=== PATIENT | male | born 1990 | race Caucasian/White ===

== ENCOUNTER 2017-04-03 08:10 | Emergency (ER) | payer SELFPAY ==
[~2017-04-03] VITALS: Ht 172.7 cm; Wt 84.8 kg
[~2017-04-03 08:10] MED LIST: ALBUTEROL0.09 MG/A2 INH; AMOXICILLIN500 MG PO; BENADRYL25 MG PO; CLARITIN10 MG PO; EPI EZ PEN1 MG/ML IM; KEFLEX500 MG PO; LISINOPRIL10 MG PO; MOTRIN800 MG PO; NKHM; PEPCID20 MG PO; PREDNISONE20 MG PO; ZITHROMAX Z PA250 MG PO
[2017-04-03] MEDS ORDERED: Motrin,Rufen800 MG PO (09:04)
[2017-04-03] MEDS ORDERED: KEFLEX500 M1 PO (09:04)
== END 2017-04-03 09:05 | disposition home or self-care (01) ==
LOC: ED 08:10
DX: K08.89 Other specified disorders of teeth and supporting structures (principal); H92.02 Otalgia, left ear

== ENCOUNTER 2017-07-10 15:39 | Emergency (ER) | payer OTHER ==
[~2017-07-10] VITALS: Ht 172.7 cm; Wt 83.9 kg
[~2017-07-10 15:39] MED LIST changes: +KEFLEX500 M1 PO; +Motrin,Rufen800 MG PO
[2017-07-10] MEDS ORDERED: AUGMENTIN 875875 MG PO (17:37)
[2017-07-10] MEDS ORDERED: FLONASE ALLERG9.9 ML NS (17:37)
== END 2017-07-10 18:00 | disposition home or self-care (01) ==
LOC: ED 15:39
DX: J32.9 Chronic sinusitis, unspecified (principal)

== ENCOUNTER 2017-11-26 10:46 | Emergency (ER) | payer OTHER ==
[~2017-11-26] VITALS: Ht 177.8 cm; Wt 81.6 kg
[~2017-11-26 10:46] MED LIST changes: +AUGMENTIN 875875 MG PO; +FLONASE ALLERG9.9 ML NS
[2017-11-26] MEDS ORDERED: PREDNISONE20 M1 PO (12:48)
[2017-11-26] MEDS ORDERED: ROBAXIN500 M1 PO (12:48)
== END 2017-11-26 13:23 | disposition home or self-care (01) ==
LOC: ED 10:46
DX: S33.5XXA Sprain of ligaments of lumbar spine, initial encounter (principal); M79.671 Pain in right foot; Z79.899 Other long term (current) drug therapy; X50.1XXA Overexertion from prolonged static or awkward postures, initial encounter; Y93.89 Activity, other specified; Y92.89 Other specified places as the place of occurrence of the external cause; Y99.9 Unspecified external cause status

== ENCOUNTER 2018-05-18 09:26 | Emergency (ER) | payer OTHER ==
[~2018-05-18] VITALS: Ht 172.7 cm; Wt 88.9 kg
--- NOTE | ~2018-05-18 | EKG ---
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
[~2018-05-18 09:26] MED LIST changes: +PREDNISONE20 M1 PO; +ROBAXIN500 M1 PO
[2018-05-18] MEDS ORDERED: SINGULAIR10 M1 PO (09:30)
[2018-05-18 09:54] LABS: BASO # 0.1 10*3/uL (0.0-0.1); BASO % 0.8 % (0.0-1.0); EOS # 0.5 10*3/uL (0.0-0.4); EOS % 6.5 % (1.0-4.0); HEMATOCRIT 45.3 % (42.0-52.0); HEMOGLOBIN 16.1 g/dl (14.0-18.0); LYMPH # 2.2 10*3/uL (1.3-4.4); LYMPH % 27.9 % (27.0-41.0); MEAN CELL VOLUME 86.3 fl (80.0-94.0); MEAN CORPUSCULAR HGB 30.7 pg (27.0-31.0); MEAN CORPUSCULAR HGB CONC 35.5 g/dl (33.0-37.0); MEAN PLATELET VOLUME 10.8 fl (9.6-12.3); MONO # 0.6 10*3/uL (0.1-1.0); MONO % 7.6 % (3.0-9.0); NEUT # 4.5 10*3/uL (2.3-7.9); NEUT % 56.9 % (47.0-73.0); PLATELET COUNT AUTOMATED 277 10*3/uL (130-400); RED BLOOD COUNT 5.25 10*6/uL (4.50-5.90); RED CELL DISTRI WIDTH 11.9 % (0-14.5); WHITE BLOOD COUNT 7.8 10*3/uL (4.8-10.8)
[2018-05-18 10:08] LABS: ACT PARTIAL THROMBO TIME 24.3 SECONDS (20.8-31.5)
[2018-05-18 10:09] LABS: ALBUMIN 4.2 gm/dl (3.1-4.5); ALKALINE PHOSPHATASE 110 U/L (45-117); BUN 5 mg/dl (7-24); CHLORIDE 106 mmol/L (98-107); CREATININE 1.12 mg/dL (0.70-1.30); LIPASE 145 U/L (73-393); POTASSIUM 3.7 mmol/L (3.5-5.1); SGOT/AST 31 IU/L (3-35); SGPT/ALT 78 U/L (12-78); SODIUM 140 mmol/L (136-145); TOTAL PROTEIN 7.6 gm/dL (6.4-8.2)
[2018-05-18 10:15] LABS: TROPONIN I < 0.015 ng/ml (<0.045)
[2018-05-18] MEDS ORDERED: ZITHROMAX250 MG PO (13:18)
[2018-05-18] MEDS ORDERED: PREDNISONE50 MG PO (13:18)
== END 2018-05-18 14:10 | disposition home or self-care (01) ==
LOC: ED 09:26
PROVIDERS: Emergency Medicine
DX: J20.9 Acute bronchitis, unspecified (principal); R42 Dizziness and giddiness; J45.909 Unspecified asthma, uncomplicated; R03.0 Elevated blood-pressure reading, without diagnosis of hypertension; Z91.09 Other allergy status, other than to drugs and biological substances; Z79.899 Other long term (current) drug therapy

== ENCOUNTER 2019-10-03 22:52 | Emergency (ER) | payer OTHER ==
[~2019-10-03] VITALS: Ht 172.7 cm; Wt 90.7 kg
--- NOTE | ~2019-10-03 | EKG ---
[place], [place] ELECTROCARDIOGRAM REPORT NAME: DIEUDONNE PIERSON UNIT #: [id number] ROOM: DOCTOR: EPIPHANY DRAFT REPORT BIRTHDATE: [birth year] [facility] Test Date: 2019-10-04 Test Time: 00:58:36 Pat Name: DIEUDONNE PIERSON Department: Room: Gender: Prospect Manager: Nannette Tello : 1990 Requested By: BOO LOU Order Number: [id number] Reading MD: Dajuan Lazo MD Measurements Intervals [place] Rate: 89 P: 10 MO: 143 QRS: -7 QRSD: 101 T: 19 QT: 338 QTc: 412 Interpretive Statements Sinus rhythm Compared to ECG 05/18/2018 09:50:16 ST (T wave) deviation no longer present Electronically Signed On 10-04-2019 4:32:26 PST by Dajuan Lazo MD CM:EKGRPT:ELECTROCARDIOGRAM REPORT [id number] BOO ESCALANTE DRAFT REPORT BOO LOU DO
[~2019-10-03 22:52] MED LIST changes: +PREDNISONE50 MG PO; +SINGULAIR10 M1 PO; +ZITHROMAX250 MG PO
[2019-10-04 00:56] LABS: BASO % 0.2 % (0.0-1.0); EOS # 0.2 10*3/uL (0.0-0.4); EOS % 1.3 % (1.0-4.0); HEMATOCRIT 45.9 % (42.0-52.0); HEMOGLOBIN 16.1 g/dl (14.0-18.0); LYMPH # 2.3 10*3/uL (1.3-4.4); LYMPH % 13.8 % (27.0-41.0); MEAN CELL VOLUME 86.8 fl (80.0-94.0); MEAN CORPUSCULAR HGB 30.4 pg (27.0-31.0); MEAN CORPUSCULAR HGB CONC 35.1 g/dl (33.0-37.0); MEAN PLATELET VOLUME 10.7 fl (9.6-12.3); NEUT # 12.9 10*3/uL (2.3-7.9); NEUT % 78.4 % (47.0-73.0); PLATELET COUNT AUTOMATED 285 10*3/uL (130-400); RED BLOOD COUNT 5.29 10*6/uL (4.50-5.90); RED CELL DISTRI WIDTH 11.9 % (0-14.5); WHITE BLOOD COUNT 16.4 10*3/uL (4.8-10.8)
[2019-10-04 01:14] LABS: ALBUMIN 3.7 gm/dl (3.1-4.5); ALKALINE PHOSPHATASE 127 U/L (45-117); BUN 9 mg/dl (7-24); CHLORIDE 108 mmol/L (98-107); CREATININE 1.04 mg/dL (0.70-1.30); POTASSIUM 3.7 mmol/L (3.5-5.1); SGOT/AST 25 IU/L (3-35); SGPT/ALT 70 U/L (12-78); SODIUM 139 mmol/L (136-145); TOTAL PROTEIN 7.3 gm/dL (6.4-8.2)
[2019-10-04 01:16] LABS: TROPONIN I < 0.015 ng/ml (<0.045)
[2019-10-04] MEDS ORDERED: ZITHROMAX250 MG PO (02:12)
[2019-10-04] MEDS ORDERED: TESSALON PERLE100 M1 PO (02:12)
== END 2019-10-04 02:30 | disposition home or self-care (01) ==
LOC: ED 22:52
PROVIDERS: Emergency Medicine
DX: J45.909 Unspecified asthma, uncomplicated (principal); E78.00 Pure hypercholesterolemia, unspecified; I10 Essential (primary) hypertension; Z79.899 Other long term (current) drug therapy

== ENCOUNTER 2019-11-07 04:14 | Inpatient (IN) | payer OTHER ==
[~2019-11-07] VITALS: Ht 173 cm; Wt 90.0 kg
[2019-11-07] VITALS (13 sets, daily range): BP systolic 122–168; BP diastolic 64–122
[~2019-11-07 04:14] MED LIST changes: +TESSALON PERLE100 M1 PO
--- NOTE | 2019-11-07 04:46 | NUR ---
PATIENT TOLERATING BREATHING TREATMENT WELL AT THIS TIME. RN WILL CONT TO MONITOR. VSS.
[2019-11-07 05:07] LABS: BASO % 0.3 % (0.0-1.0); EOS # 0.2 10*3/uL (0.0-0.4); EOS % 1.4 % (1.0-4.0); HEMATOCRIT 49.1 % (42.0-52.0); HEMOGLOBIN 17.4 g/dl (14.0-18.0); LYMPH # 0.3 10*3/uL (1.3-4.4); LYMPH % 3.1 % (27.0-41.0); MEAN CELL VOLUME 84.8 fl (80.0-94.0); MEAN CORPUSCULAR HGB 30.1 pg (27.0-31.0); MEAN CORPUSCULAR HGB CONC 35.4 g/dl (33.0-37.0); MEAN PLATELET VOLUME 11.4 fl (9.6-12.3); MONO # 0.6 10*3/uL (0.1-1.0); MONO % 5.4 % (3.0-9.0); NEUT # 9.9 10*3/uL (2.3-7.9); NEUT % 89.5 % (47.0-73.0); PLATELET COUNT AUTOMATED 252 10*3/uL (130-400); RED BLOOD COUNT 5.79 10*6/uL (4.50-5.90); RED CELL DISTRI WIDTH 11.9 % (0-14.5); WHITE BLOOD COUNT 11.1 10*3/uL (4.8-10.8)
[2019-11-07 05:22] LABS: ALBUMIN 4.3 gm/dl (3.1-4.5); ALKALINE PHOSPHATASE 112 U/L (45-117); BUN 11 mg/dl (7-24); CHLORIDE 109 mmol/L (98-107); CREATININE 1.29 mg/dL (0.70-1.30); POTASSIUM 3.9 mmol/L (3.5-5.1); SGOT/AST 32 IU/L (3-35); SGPT/ALT 90 U/L (12-78); SODIUM 141 mmol/L (136-145); TOTAL PROTEIN 7.8 gm/dL (6.4-8.2)
--- NOTE | 2019-11-07 05:24 | NUR ---
LAB CALLED WITH CRITICAL LACTIC ACID LEVEL 2.9.MD LOU NOTIFIED.
--- NOTE | 2019-11-07 05:27 | NUR ---
PATIENT RESTING IN BED AT THIS TIME, VOICES NO COMPLAINTS. VSS. CALL LIGHT WITH IN REACH. RN WILL CONT TO MONITOR
--- NOTE | 2019-11-07 07:45 | NUR ---
PATIENT LAYING IN BED APPEARS IN NO DISTRESS. ON CHECK TOTALER. VITAL SIGNS STABLE AT THIS TIME.
--- NOTE | 2019-11-07 08:03 | NUR ---
PATIENT STATES HE IS HUNGRY. BREAKFAST TRAY OREDERED FOR PATIENT. UNHOOKED FROM CABLES TO GO TO THE RESTROOM.
--- NOTE | 2019-11-07 09:36 | NUR ---
STILL AWAITING PATIENT ROOM ASSIGMENT.
--- NOTE | 2019-11-07 14:00 | NUR ---
A 29, admitted to , under the services of KECIA Foster DO with a diagnosis of ASTHMA EXACERBATION. Chief complaint is SOB, COUGH. Patient arrived via ambulatory from ER. Monitor applied. Initial assessment completed. Vital signs taken and recorded. KECIA FOSTER DO notified of admission to the unit. Orders received. See assessment for past medical history, medications and allergies. Patient and/or family oriented to unit. [facility] visitation policy reviewed. Clothing/patient valuable form completed. RITA ALVARADO
--- NOTE | 2019-11-07 14:06 | NUR ---
MED REC UPDATED WITH PT AT BEDSIDE.
[2019-11-07] MEDS ORDERED: CYCLOBENZAPRINE10 MG PO (14:18)
[2019-11-07] MEDS ORDERED: BENZONATATE100 M1 PO (14:20)
[2019-11-07] MEDS ORDERED: ADVAIR HFA 115-12 GM INH (14:21)
[2019-11-07] MEDS ORDERED: VITAMIN D-32000 UNI1 PO (14:21)
[2019-11-07] MEDS ORDERED: VENT7GM INH (14:22)
--- NOTE | 2019-11-07 14:25 | NUR ---
TOOK PATIENT TO 4TH FLOOR REPORT GIVEN TO RITA RN AT BEDSIDE. PATIENT AMBULATED WELL IN ER MULTIPLE TIMES TO RESTROOM WITHOUT ANY PROBLEMS. PATIENT AMBULATED INTO HIS ROOM TO BED ABOUT THE SAME DISTANCE. PATIENT BECAME SOB AND STATES HE HAS BEEN HAVING CHEST PAIN INTERMITTENTLY AND THAT "I SHOULD OF TOLD SOMEONE". PATIENT DIAPHORETIC. RITA RN NOTIFIED AND APPROPRIATE ACTION TAKEN. ASSESSED PATIENT PRIOR TO RETURNING TO ER AND RITA RN NOTIFIED.
--- NOTE | 2019-11-07 15:09 | NUR ---
WPOKE WITH REGARDING ORDERS FOR TAMIFLU WITH A NEGATIVE FLU TEST. PT CURRENTLY HAS A ROOMMATE. ASKED IF HE WANTED PT PLACED INTO ISOLATION FOR FLU PRECAUTIONS. SAID THAT IF THERE IS A ROOM AVAILABLE TO DO SO, IF NOT IT WAS OK. BELIEVES SXS ARE RELATED TO ASTHMA EXACERBATION AND NOT FLU RELATED.
--- NOTE | 2019-11-07 15:34 | NUR ---
VITALIY EDGE NOTIFIED THAT HR IS STILL 130s SINCE COMING TO FLOOR. SAID HE WOULD ORDER D-DIMER WITH NEXT TROP DRAW.
--- NOTE | 2019-11-07 16:08 | NUR ---
TYLENOL GIVENFOR TEMP OF 102.3. WILL MONITOR.
--- NOTE | 2019-11-07 19:23 | NUR ---
NOTIFIED OF + FLU A RESULT.
--- NOTE | 2019-11-07 19:35 | NUR ---
PATIENT MEDICATED SLOWLY WITH MORPHINE 2 MG IV PER PRN ORDER FOR C/O CHEST PAIN. STATED PAIN NOT NEW. RATED PAIN A 4/10 WITH 10 BEING THE WORST. SEE EMAR. REINFORCED USE OF CALL LIGHT.
--- NOTE | 2019-11-07 20:08 | NUR ---
DR. MCKEON UPDATED WITH HEART RATE AND VITAL SIGNS. ALSO NOTIFIED OF CHEST PAIN ,RATED 4/10 WITH 10 BEING THE WORST. STATED PAIN NOT NEW. NO NEW ORDERS RECEIVED.
--- NOTE | 2019-11-07 21:00 | NUR ---
PATIENT RESTING QUIETLY. NO FURTHER C/O VOICED
[2019-11-08] VITALS: BP 157/91
--- NOTE | 2019-11-08 01:28 | NUR ---
NORCO GIVEN PER PRN ORDER ORDER FOR C/O THROAT PAIN FROM COUGH. SEE EMAR. RATED PAIN A 6/10 WITH 10 BEING THE WORST. REINFORCED USE OF CALL LIGHT.
--- NOTE | 2019-11-08 01:28 | NUR ---
NIRCO GIVEN PER PRN ORDER FOR C/O THROAT PAIN FROM COUGHING. SEE EMAR. REINFORCED USE OF CALL LIGHT
--- NOTE | 2019-11-08 02:36 | NUR ---
24 HR chart check completed.
--- NOTE | 2019-11-08 02:36 | NUR ---
PATIENT RESTING QUIETLY. NO FURTHER C/O VOICED.
[2019-11-08 04:00] VITALS: BP 130/88
[2019-11-08 06:27] LABS: HEMOGLOBIN 15.6 g/dl (14.0-18.0); MEAN CORPUSCULAR HGB 30.2 pg (27.0-31.0); MEAN CORPUSCULAR HGB CONC 34.7 g/dl (33.0-37.0); MEAN PLATELET VOLUME 11.6 fl (9.6-12.3); PLATELET COUNT AUTOMATED 240 10*3/uL (130-400); RED BLOOD COUNT 5.17 10*6/uL (4.50-5.90); RED CELL DISTRI WIDTH 12.4 % (0-14.5); WHITE BLOOD COUNT 13.6 10*3/uL (4.8-10.8)
[2019-11-08 06:34] LABS: BUN 10 mg/dl (7-24); CHLORIDE 111 mmol/L (98-107); CREATININE 1.08 mg/dL (0.70-1.30); PHOSPHOROUS 2.5 mg/dL (2.5-4.9); POTASSIUM 3.9 mmol/L (3.5-5.1); SODIUM 141 mmol/L (136-145)
[2019-11-08 07:28] LABS: TOTAL CELLS COUNTED 100 #CELLS
[2019-11-08 07:31] LABS: PLATELET SUFFICIENCY NORMAL (NORMAL)
[2019-11-08 08:00] VITALS: BP 132/80
--- NOTE | 2019-11-08 08:30 | NUR ---
PATIENT MEDICATED WITH NORCO AT THIS TIME FOR COMPLAINTS OF PAIN, GENERALIZED BODY ACHES TO BACK & HEADACHE. WILL MONITOR FOR EFFECTIVENESS.
--- NOTE | 2019-11-08 09:00 | NUR ---
Shell Assembler in to talk to patient. Patient states lives at home with alone. There are few steps in the home. Physician: none at present [facility] health services: none Patient's level of ADLs: INDEPENDENT Patient has working utilities: all working DME: none Follow-up physician's appointment after d/c: will be made by hospitalist nurse director upon discharge Does patient want to access PORTAL?: no Discharge plan discussed with patient, he lives at home, is independent in adls and ambulation, works, drives, states he will return home when medically stable and denies any home needs, case management will follow. NGUYEN PATE
--- NOTE | 2019-11-08 09:00 | NUR ---
Cupola Melter in to talk to patient. Patient states lives at home with alone. There are few steps in the home. Physician: [facility] [facility]: none Patient's level of ADLs: INDEPENDENT Patient has working utilities: all working DME: none Follow-up physician's appointment after d/c: will be made by hospitalist nurse director upon discharge Does patient want to access PORTAL?: no Discharge plan discussed with patient, he lives at home alone, is independent in adls and ambulation, works, drives, he states he will return home when medically stable and denies any home needs. NGUYEN PATE
--- NOTE | 2019-11-08 10:00 | NUR ---
PER PATIENT, PRN MEDICATION HAS BEEN EFFECTIVE. NO FURTHER COMPLAINTS AT THIS TIME.
[2019-11-08 12:00] VITALS: BP 130/78
[2019-11-08 16:00] VITALS: BP 150/89
[2019-11-08 20:00] VITALS: BP 138/90
--- NOTE | 2019-11-08 20:25 | NUR ---
PATIENT MEDICATED WITH NORCO PER PRN ORDER FOR C/O THROAT PAIN. RATED PAIN A 6/10 WITH 10 BEING THE WORST. SEE EMAR. REINFORCED USE OF CALL LIGHT.
--- NOTE | 2019-11-08 21:00 | NUR ---
PATIENT FEELING A LITTLE BETTER. RATING PAIN A 3 AT PRESENT
--- NOTE | 2019-11-08 22:20 | NUR ---
PATIENT MEDICATED WITH MOTRIN PER PRN ORDER FOR C/O THROAT PAIN . RATED PAIN A 6/10 WITH 10 BEING THE WORST. SEE EMAR. REINFORCED USE OF CALL LIGHT.
[2019-11-09] VITALS: BP 153/92
--- NOTE | 2019-11-09 00:59 | NUR ---
PATIENT RESTING QUIETLY. NO FURTHER C/O VOICED.
--- NOTE | 2019-11-09 01:18 | NUR ---
24 HR chart check completed.
[2019-11-09 08:00] VITALS: BP 140/80
--- NOTE | 2019-11-09 10:17 | NUR ---
PT RESTING IN BED/ NO DISTRESS NOTED. WILL MONITOR
[2019-11-09 12:00] VITALS: BP 145/86
[2019-11-09 16:00] VITALS: BP 147/89
--- NOTE | 2019-11-09 19:50 | NUR ---
PT STATES HE IS FEELING NAUSEOUS AND STATES THAT HE HAS NOT THROWN UP, BUT FEELS LIKE HE MAY AND IS WONDERING IF HE CAN HAVE SOPMETHING. PRN ZOFRAN IV IS GIVEN AT THIS TIME.
[2019-11-09 20:00] VITALS: BP 149/98
--- NOTE | 2019-11-09 21:35 | NUR ---
IN TO RE-ASSES THE PATIENT AFTER GIVING ZOFRAN AND HE STATES THAT HE IS FEELING BETTER. WILL CONTINUE TO MONITOR
[2019-11-09 22:00] VITALS: BP 149/98
[2019-11-10 00:57] VITALS: BP 160/102
--- NOTE | 2019-11-10 00:57 | NUR ---
CALLED DR RAMIREZ TO INFROM HIM OF HIGH BP READINGS, HE STATES HE WILL PUT AN ORDER IN
--- NOTE | 2019-11-10 01:11 | NUR ---
24 HR chart check completed.
--- NOTE | 2019-11-10 02:09 | NUR ---
PT IS REQUESTING SOMETHING TO HELP HIM SLEEP. PRN PO RESTORIL IS GIVEN AT THIS TIME.. WILL CONTINUE TO MONITOR
[2019-11-10 04:00] VITALS: BP 130/88; BP 138/88
--- NOTE | 2019-11-10 04:31 | NUR ---
Patient sleeping. Respirations relaxed and easy. Siderails up . [place] on. NICK BULLARD
[2019-11-10 08:00] VITALS: BP 134/80
[2019-11-10] MEDS ORDERED: PREDNISONE10 MG PO (09:52)
[2019-11-10] MEDS ORDERED: LISINOPRIL5 MG PO (09:52)
[2019-11-10] MEDS ORDERED: CEPACOL SORE T1 EACH PO (09:52)
[2019-11-10] MEDS ORDERED: TAMIFLU 75MG CA75 MG PO (09:52)
[2019-11-10] MEDS ORDERED: ZOFRAN4 MG PO (10:30)
--- NOTE | 2019-11-10 14:00 | NUR ---
Discharge instructions reviewed with patient/family. Patient receptive and verbalizes understanding. Follow-up care arranged. Written instructions given to patient/family. GABRIEL SANDERS
[2019-11-12 00:03] LABS: ADENOVIRUS Negative (Negative); INFLUENZA B Negative (Negative); METAPNEUMOVIRUS Negative (Negative); PARAINFLUENZA 1 Negative (Negative); PARAINFLUENZA 2 Negative (Negative); PARAINFLUENZA 3 Negative (Negative); RHINOVIRUS Negative (Negative); RSV A Negative (Negative); RSV B Negative (Negative)
[2019-11-13 17:07] LABS: INFLUENZA A Positive (Negative)
== END 2019-11-10 15:07 | disposition home or self-care (01) | DRG 871 ==
LOC: ED 04:14 → EDHOLD 06:36 → 4E 06:36
PROVIDERS: Emergency Medicine; Student in an Organized Health Care Education/Training Program; ADMIT Internal Medicine
DX: A41.9 Sepsis, unspecified organism (principal); J10.00 Influenza due to other identified influenza virus with unspecified type of pneumonia; J45.901 Unspecified asthma with (acute) exacerbation; R65.20 Severe sepsis without septic shock; E66.9 Obesity, unspecified; K76.0 Fatty (change of) liver, not elsewhere classified; E87.8 Other disorders of electrolyte and fluid balance, not elsewhere classified; R09.02 Hypoxemia; R73.9 Hyperglycemia, unspecified; R74.0 Nonspecific elevation of levels of transaminase and lactic acid dehydrogenase [LDH]; Z91.09 Other allergy status, other than to drugs and biological substances; Z82.49 Family history of ischemic heart disease and other diseases of the circulatory system; Z79.899 Other long term (current) drug therapy; Z68.30 Body mass index [BMI] 30.0-30.9, adult

== ENCOUNTER 2020-01-11 06:15 | Emergency (ER) | payer OTHER ==
[~2020-01-11] VITALS: Ht 180.3 cm; Wt 88.9 kg
[~2020-01-11 06:15] MED LIST changes: +ADVAIR HFA 115-12 GM INH; +BENZONATATE100 M1 PO; +CEPACOL SORE T1 EACH PO; +CYCLOBENZAPRINE10 MG PO; +LISINOPRIL5 MG PO; +PREDNISONE10 MG PO; +TAMIFLU 75MG CA75 MG PO; +VENT7GM INH; +VITAMIN D-32000 UNI1 PO; +ZOFRAN4 MG PO
[2020-01-11] MEDS ORDERED: PREDNISONE10 MG PO (06:31)
[2020-01-11] MEDS ORDERED: ATARAX,VISTARIL50 MG PO (06:31)
== END 2020-01-11 06:45 | disposition home or self-care (01) ==
LOC: ED 06:15
DX: L25.9 Unspecified contact dermatitis, unspecified cause (principal); J45.909 Unspecified asthma, uncomplicated; I10 Essential (primary) hypertension; E66.9 Obesity, unspecified; Z91.018 Allergy to other foods; Z79.899 Other long term (current) drug therapy; Z68.30 Body mass index [BMI] 30.0-30.9, adult

== ENCOUNTER 2020-07-06 06:11 | Emergency (ER) | payer SELFPAY ==
[~2020-07-06] VITALS: Ht 172.7 cm; Wt 90.7 kg
[~2020-07-06 06:11] MED LIST changes: +ATARAX,VISTARIL50 MG PO
[2020-07-06 06:54] LABS: BASO # 0.1 10*3/uL (0.0-0.1); BASO % 0.6 % (0.0-1.0); EOS # 0.5 10*3/uL (0.0-0.4); EOS % 5.7 % (1.0-4.0); HEMATOCRIT 44.8 % (42.0-52.0); LYMPH # 2.9 10*3/uL (1.3-4.4); LYMPH % 37.2 % (27.0-41.0); MEAN CELL VOLUME 85.8 fl (80.0-94.0); MEAN CORPUSCULAR HGB 30.5 pg (27.0-31.0); MEAN CORPUSCULAR HGB CONC 35.5 g/dl (33.0-37.0); MEAN PLATELET VOLUME 11.1 fl (9.6-12.3); MONO # 0.7 10*3/uL (0.1-1.0); MONO % 9.1 % (3.0-9.0); NEUT # 3.7 10*3/uL (2.3-7.9); NEUT % 47.3 % (47.0-73.0); PLATELET COUNT AUTOMATED 287 10*3/uL (130-400); RED BLOOD COUNT 5.22 10*6/uL (4.50-5.90); WHITE BLOOD COUNT 7.9 10*3/uL (4.8-10.8)
[2020-07-06 07:06] LABS: ALBUMIN 3.9 gm/dl (3.1-4.5); ALKALINE PHOSPHATASE 101 U/L (45-117); BUN 12 mg/dl (7-24); CHLORIDE 109 mmol/L (98-107); CREATININE 1.11 mg/dL (0.70-1.30); LIPASE 162 U/L (73-393); POTASSIUM 3.6 mmol/L (3.5-5.1); SGOT/AST 31 IU/L (3-35); SGPT/ALT 86 U/L (12-78); SODIUM 141 mmol/L (136-145); TOTAL PROTEIN 7.4 gm/dL (6.4-8.2)
[2020-07-06 08:32] LABS: BACTERIA 1+; BILIRUBIN NEGATIVE; BLOOD NEGATIVE (NEGATIVE); CLARITY CLEAR (CLEAR); COLOR YELLOW (YELLOW); EPITHELIAL CELLS 0-2; GLUCOSE NEGATIVE; KETONE NEGATIVE; LEUKO ESTERASE NEGATIVE (NEGATIVE); NITRITE NEGATIVE (NEGATIVE); WBC 0-2 wbc/hpf (0-5)
== END 2020-07-06 08:52 | disposition home or self-care (01) ==
LOC: ED 06:11
PROVIDERS: Emergency Medicine
DX: R10.31 Right lower quadrant pain (principal); J45.909 Unspecified asthma, uncomplicated; I10 Essential (primary) hypertension; Z88.8 Allergy status to other drugs, medicaments and biological substances; Z79.899 Other long term (current) drug therapy

== ENCOUNTER 2021-03-18 03:20 | Emergency (ER) | payer BC ==
[~2021-03-18] VITALS: Ht 172.7 cm; Wt 90.7 kg
[2021-03-18] MEDS ORDERED: PREDNISONE20 M1 PO (04:08)
[2021-03-18] MEDS ORDERED: DIPHENHYDRAMINE50 M1 PO (04:08)
== END 2021-03-18 04:36 | disposition home or self-care (01) ==
LOC: ED 03:20
DX: L23.7 Allergic contact dermatitis due to plants, except food (principal); J45.909 Unspecified asthma, uncomplicated; E66.9 Obesity, unspecified; Z88.8 Allergy status to other drugs, medicaments and biological substances; Z79.899 Other long term (current) drug therapy

== ENCOUNTER 2021-05-14 04:24 | Emergency (ER) | payer BC ==
[~2021-05-14] VITALS: Ht 180.3 cm; Wt 86.2 kg
[~2021-05-14 04:24] MED LIST changes: +DIPHENHYDRAMINE50 M1 PO
[2021-05-14] MEDS ORDERED: PENICILLIN VK500 MG PO (04:42)
== END 2021-05-14 05:04 | disposition home or self-care (01) ==
LOC: ED 04:24
DX: K02.9 Dental caries, unspecified (principal); Z91.048 Other nonmedicinal substance allergy status; Z91.018 Allergy to other foods; Z79.899 Other long term (current) drug therapy

== ENCOUNTER 2021-07-14 20:32 | Emergency (ER) | payer BC ==
[~2021-07-14] VITALS: Ht 172.7 cm; Wt 89.4 kg
[~2021-07-14 20:32] MED LIST changes: +PENICILLIN VK500 MG PO
[2021-07-14 23:15] LABS: BASO % 0.2 % (0.0-1.0); EOS # 0.5 10*3/uL (0.0-0.4); EOS % 3.8 % (1.0-4.0); LYMPH # 2.2 10*3/uL (1.3-4.4); LYMPH % 18.1 % (27.0-41.0); MEAN CELL VOLUME 86.5 fl (80.0-94.0); MEAN CORPUSCULAR HGB 30.6 pg (27.0-31.0); MEAN CORPUSCULAR HGB CONC 35.3 g/dl (33.0-37.0); MEAN PLATELET VOLUME 10.8 fl (9.6-12.3); MONO # 0.8 10*3/uL (0.1-1.0); MONO % 6.9 % (3.0-9.0); NEUT # 8.5 10*3/uL (2.3-7.9); NEUT % 70.8 % (47.0-73.0); PLATELET COUNT AUTOMATED 286 10*3/uL (130-400); RED CELL DISTRI WIDTH 11.6 % (0-14.5)
[2021-07-14 23:33] LABS: ALKALINE PHOSPHATASE 117 U/L (45-117); BUN 14 mg/dl (7-24); CHLORIDE 106 mmol/L (98-107); CREATININE 0.95 mg/dL (0.70-1.30); LIPASE 159 U/L (73-393); SGOT/AST 44 IU/L (3-35); SGPT/ALT 127 U/L (12-78); SODIUM 140 mmol/L (136-145); TOTAL PROTEIN 7.4 gm/dL (6.4-8.2)
[2021-07-15] MEDS ORDERED: OMEPRAZOLE40 MG PO (00:53)
== END 2021-07-15 01:15 | disposition home or self-care (01) ==
LOC: ED 20:32
PROVIDERS: Internal Medicine
DX: K21.9 Gastro-esophageal reflux disease without esophagitis (principal); R94.5 Abnormal results of liver function studies; Z91.048 Other nonmedicinal substance allergy status; Z91.018 Allergy to other foods; Z79.899 Other long term (current) drug therapy; Z79.2 Long term (current) use of antibiotics

== ENCOUNTER → 2022-10-09 | Outpatient (CLI) | payer BC ==
[~2022-10-09] MED LIST changes: +OMEPRAZOLE40 MG PO
== END | disposition home or self-care (01) ==
LOC: US 10-08 10:30
PROVIDERS: ATTEND Nurse Practitioner
DX: K82.4 Cholesterolosis of gallbladder (principal)

== ENCOUNTER 2022-11-02 23:43 | Emergency (ER) | payer BC ==
[~2022-11-02] VITALS: Ht 172.7 cm; Wt 95.3 kg
[2022-11-03 00:59] LABS: BASO % 0.5 % (0.0-1.0); EOS # 0.4 10*3/uL (0.0-0.4); EOS % 4.8 % (1.0-4.0); HEMATOCRIT 46.2 % (42.0-52.0); LYMPH # 1.3 10*3/uL (1.3-4.4); LYMPH % 15.3 % (27.0-41.0); MEAN CELL VOLUME 86.2 fl (80.0-94.0); MEAN CORPUSCULAR HGB 30.6 pg (27.0-31.0); MEAN CORPUSCULAR HGB CONC 35.5 g/dl (33.0-37.0); MEAN PLATELET VOLUME 10.9 fl (9.6-12.3); MONO % 12.4 % (3.0-9.0); NEUT # 5.5 10*3/uL (2.3-7.9); NEUT % 66.6 % (47.0-73.0); PLATELET COUNT AUTOMATED 244 10*3/uL (130-400); RED BLOOD COUNT 5.36 10*6/uL (4.50-5.90); RED CELL DISTRI WIDTH 11.9 % (0-14.5); WHITE BLOOD COUNT 8.2 10*3/uL (4.8-10.8)
[2022-11-03 01:10] LABS: ACT PARTIAL THROMBO TIME 32.4 SECONDS (20.0-32.1); INTERNATIONAL NORM RATIO 1.1 (2.0-3.5)
[2022-11-03 01:17] LABS: ALKALINE PHOSPHATASE 121 U/L (46-116); BUN 6 mg/dl (9-23); CHLORIDE 104 mmol/L (98-107); POTASSIUM 4.1 mmol/L (3.4-5.1); SGPT/ALT 83 U/L (10-49); TOTAL PROTEIN 7.5 gm/dL (6.0-8.0)
[2022-11-03] MEDS ORDERED: BENZONATATE150 MG PO (04:35)
== END 2022-11-03 05:00 | disposition home or self-care (01) ==
LOC: ED 23:43
PROVIDERS: Emergency Medicine
DX: R05.9 Cough, unspecified (principal); Z20.822 Contact with and (suspected) exposure to COVID-19; R53.81 Other malaise

== ENCOUNTER 2022-12-21 06:45 | Emergency (ER) | payer BC ==
[~2022-12-21] VITALS: Ht 172.7 cm; Wt 93.0 kg
[~2022-12-21 06:45] MED LIST changes: +BENZONATATE150 MG PO
== END 2022-12-21 08:38 | disposition home or self-care (01) ==
LOC: ED 06:45
DX: U07.1 COVID-19 (principal); Z91.018 Allergy to other foods; J45.909 Unspecified asthma, uncomplicated; I10 Essential (primary) hypertension

== ENCOUNTER → 2023-11-20 | Outpatient (CLI) | payer BC | LOC: US 07:41 | PROVIDERS: ATTEND Nurse Practitioner | DX: K76.0 Fatty (change of) liver, not elsewhere classified (principal); R74.8 Abnormal levels of other serum enzymes ==

== ENCOUNTER 2024-04-16 19:04 | Emergency (ER) | payer BC ==
[~2024-04-16] VITALS: Ht 172.7 cm; Wt 95.3 kg
[2024-04-16] MEDS ORDERED: AVPAK AZITHROM250 MG PO (19:34)
== END 2024-04-16 19:47 | disposition home or self-care (01) ==
LOC: ED 19:04
DX: J06.9 Acute upper respiratory infection, unspecified (principal); Z91.048 Other nonmedicinal substance allergy status; Z91.018 Allergy to other foods; Z79.899 Other long term (current) drug therapy

== ENCOUNTER → 2024-12-31 | Outpatient (CLI) | payer BC ==
[~2024-12-31] MED LIST changes: +AVPAK AZITHROM250 MG PO
== END | disposition home or self-care (01) ==
LOC: RAD 08:17
PROVIDERS: ATTEND Nurse Practitioner
DX: M54.16 Radiculopathy, lumbar region (principal); M54.50 Low back pain, unspecified

== ENCOUNTER 2025-01-14 18:15 | Emergency (ER) | payer BC ==
[~2025-01-14] VITALS: Ht 172.7 cm; Wt 99.8 kg
[2025-01-14] MEDS ORDERED: SODIUM CHLORIDE 0.9% 1,000 ML IV ONE (19:45)
[2025-01-14] MEDS ORDERED: ACETAMINOPHEN 325 MG TAB PO ONE (19:45)
[2025-01-14] MEDS ORDERED: Ketorolac Tromethamine 30 MG/ML VIAL IV ONE (19:45)
[2025-01-14 20:01] LABS: BASO % 0.3 % (0.0-1.0); EOS % 0.2 % (1.0-4.0); HEMATOCRIT 45.3 % (42.0-52.0); MEAN CELL VOLUME 86.6 fl (80.0-94.0); MEAN CORPUSCULAR HGB 30.4 pg (27.0-31.0); MEAN CORPUSCULAR HGB CONC 35.1 g/dl (33.0-37.0); MEAN PLATELET VOLUME 10.8 fl (9.6-12.3); MONO # 1.1 10*3/uL (0.1-1.0); MONO % 11.7 % (3.0-9.0); NEUT % 77.2 % (47.0-73.0); PLATELET COUNT AUTOMATED 204 10*3/uL (130-400); RED BLOOD COUNT 5.23 10*6/uL (4.50-5.90); RED CELL DISTRI WIDTH 11.8 % (0-14.5); WHITE BLOOD COUNT 9.1 10*3/uL (4.8-10.8)
[2025-01-14 20:21] LABS: BUN 12 mg/dl (9-23); CHLORIDE 100 mmol/L (98-107); POTASSIUM 3.9 mmol/L (3.4-5.1)
== END 2025-01-14 21:02 | disposition home or self-care (01) ==
LOC: ED 18:15
PROVIDERS: Nurse Practitioner Family
DX: J10.1 Influenza due to other identified influenza virus with other respiratory manifestations (principal); E86.0 Dehydration; Z20.822 Contact with and (suspected) exposure to COVID-19; R06.02 Shortness of breath; J45.909 Unspecified asthma, uncomplicated; K21.9 Gastro-esophageal reflux disease without esophagitis; E78.00 Pure hypercholesterolemia, unspecified; I10 Essential (primary) hypertension; Z88.8 Allergy status to other drugs, medicaments and biological substances; Z91.013 Allergy to seafood